=== PATIENT | female | born 1970 | race African-American/Black ===

== ENCOUNTER → 2019-11-16 | Outpatient (CLI) | payer OTHER ==
[~2019-11-16] MED LIST: FLEXERIL PO; HYDROCODON-ACE1 EAC8 PO; ONZETRA XSAIL11 MG NARES; PROZAC20 M1 PO; SPIRONOLACTONE100 M3 PO; TOPIRAMATE 100100 MG PO; VITAMIN D310 MC4 PO; WELLBUTRIN SR100 MG PO
[2019-11-17 02:06] LABS: CA 125 4.9 U/mL (0.0-38.1)
[2019-11-17 15:07] LABS: CEA 0.8 ng/mL (0.0-4.7)
== END ==
LOC: LABMALL 12:58
PROVIDERS: ATTEND Obstetrics & Gynecology
DX: Z80.41 Family history of malignant neoplasm of ovary (principal); N83.209 Unspecified ovarian cyst, unspecified side

== ENCOUNTER → 2020-02-22 | Outpatient (CLI) | payer OTHER ==
[~2020-02-22] MED LIST changes: +B12INJ IM; +ELIQUIS2.5 MG PO
== END ==
LOC: LAB 07:36
PROVIDERS: ATTEND Obstetrics & Gynecology
DX: Z01.812 Encounter for preprocedural laboratory examination (principal); Z20.822 Contact with and (suspected) exposure to COVID-19

== ENCOUNTER 2020-02-26 06:34 | Day surgery (SDC) | payer OTHER ==
[~2020-02-26] VITALS: Ht 167.6 cm; Wt 78.0 kg
[2020-02-26 06:56] LABS: HEMATOCRIT 41.2 % (37.0-47.0); HEMOGLOBIN 13.6 gm/dL (12.0-15.0)
[2020-02-26 07:05] LABS: CREATININE 1.1 mg/dL (0.6-1.0); POTASSIUM 4.3 mmol/L (3.5-5.1)
[2020-02-26 07:17] VITALS: BP 92/61
[2020-02-26] MEDS ORDERED: IBU600 MG PO (09:28)
[2020-02-26] MEDS ORDERED: HYDROCODON-ACE1 EAC7 PO (09:28)
[2020-02-26] MEDS ORDERED: LOVENOX40 MG/0.4 SUBQ (09:28)
[2020-02-26 09:41] VITALS: BP 92/61
--- NOTE | 2020-03-02 12:44 | O ---
[facility] [place] [address] OPERATIVE REPORT Name: NGUYỄN POE Room #: DEP [facility]ENTERIsauro.[facility] [id number] Admission: 02/26/20 Attend Phys: Diana Torres DO Discharge: 02/26/20 Date of : 72 Report #: [id number] THIS REPORT FOR: cc: Elvi Castro MD, Veronica A. MD Farris,Diana Pérez DO ~ DATE OF SERVICE: 02/26/2020 PREOPERATIVE DIAGNOSES: 1. Ovarian pelvic mass. 2. Pelvic pain. 3. Family history of breast cancer. 4. Family history of ovarian cancer. POSTOPERATIVE DIAGNOSES: 1. Ovarian pelvic mass. 2. Pelvic pain. 3. Family history of breast cancer. 4. Family history of ovarian cancer. 5. Extensive pelvic adhesions incorporating bowel. OPERATION PERFORMED: Diagnostic laparoscopy. SURGEON: Dr. Diana Torres. ANESTHESIA: General. ESTIMATED BLOOD LOSS: Less than 5 mL. OPERATIVE FINDINGS: Dense adhesions involving the bowel and omentum to the anterior abdominal wall of the pelvis as well as the left pelvic sidewall appendix adhesed to the right pelvic sidewall, ovaries minimally visualized. One ovary noted to be adhered to the anterior abdominal wall and the left ovary unable to be visualized due to the dense adhesions. DESCRIPTION OF PROCEDURE: The patient was taken to the operating room where general anesthesia was administered and found to be adequate. She was then prepped and draped in a normal sterile fashion in dorsal supine position. A Angelo catheter was placed in the patient's bladder. The bladder was drained of urine. This was done prior to the position being prepped and draped in the supine position. A 5 mm infraumbilical incision was made with a scalpel. A 5 mm trocar was passed through this incision under direct visualization of the laparoscope. No incisional or no insertional trauma was identified. Pneumoperitoneum was allowed to accumulate using carbon dioxide gas once an adequate pneumoperitoneum was infused. An incision was made in the patient's [address] [address] OPERATIVE REPORT Name: NGUYỄN POE Room #: DEP [facility] M.R.#: [id number] Admission: 02/26/20 Attend Phys: Diana Torres DO Discharge: 02/26/20 Date of : 72 Report #: [id number] right lower quadrant with a scalpel. A 5 mm trocar was passed through this incision under direct visualization of the laparoscope. Again, no insertional trauma was identified. A survey of the patient's abdomen revealed the above findings with dense adhesions of the bowel as well as the omentum to the anterior abdominal wall, the left pelvic sidewall; the appendix adhered to the right pelvic sidewall; one ovary, which is assumed to be the right ovary, but cannot clarify distinctly due to the adhesions adhered to the anterior abdominal wall and no infundibulopelvic ligament identifiable. The left ovary or pelvic mass unable to be identified due to the dense adhesions of the pelvis. No posterior cul-de-sac was able to be distinguished due to pelvic adhesions. It was at this time decided that the bilateral salpingo-oophorectomy that was planned would be aborted and further assessment on the patient would be performed as an outpatient in conjunction with General Surgery, so the patient could possibly be returned to the operating room for the bilateral salpingo-oophorectomy with general surgeon assist. All instruments were then removed from the patient's abdomen. The trocars were removed as well. The pneumoperitoneum was allowed to escape. The incisions were then reapproximated using 4-0 Monocryl. The Angelo was removed from the patient's bladder. The patient tolerated the procedure well. Sponge, lap and needle counts were reported as correct. The patient was taken to the recovery room in stable condition. <ELECTRONICALLY SIGNED> By: Diana Torres DO 03/02/20 1244 1306 1333 Diana Torres DO /nt
== END 2020-02-26 11:15 | disposition home or self-care (01) ==
LOC: OR 06:34 → TBA 06:35 → OR 07:36
PROVIDERS: ATTEND Obstetrics & Gynecology
DX: R10.2 Pelvic and perineal pain (principal); N83.202 Unspecified ovarian cyst, left side; N73.6 Female pelvic peritoneal adhesions (postinfective); F32.9 Major depressive disorder, single episode, unspecified; G43.909 Migraine, unspecified, not intractable, without status migrainosus; Z98.890 Other specified postprocedural states; Z90.710 Acquired absence of both cervix and uterus; Z80.3 Family history of malignant neoplasm of breast; Z80.41 Family history of malignant neoplasm of ovary; Z90.711 Acquired absence of uterus with remaining cervical stump; Z96.611 Presence of right artificial shoulder joint; Z98.84 Bariatric surgery status; Z88.8 Allergy status to other drugs, medicaments and biological substances
CPT/HCPCS: 50010; 50101; 50249; 50386; 50400; 50455; 50555; 50558; 50962; 51975; 53307; 53310; 54118; 56462; 56526; 62110; 62900; 70005

== ENCOUNTER → 2020-04-18 | Outpatient (CLI) | payer OTHER ==
[~2020-04-18] MED LIST changes: +HYDROCODON-ACE1 EAC7 PO; +IBU600 MG PO; +LOVENOX40 MG/0.4 SUBQ; +TYLENOL EXTRA500 MG PO
== END ==
LOC: LAB 07:45
PROVIDERS: ATTEND Surgery
DX: Z01.812 Encounter for preprocedural laboratory examination (principal); Z20.822 Contact with and (suspected) exposure to COVID-19

== ENCOUNTER 2020-04-22 06:06 | Inpatient (IN) | payer OTHER ==
[2020-04-22] VITALS (9 sets, daily range): BP systolic 100–118; BP diastolic 66–81
[~2020-04-22] VITALS: Ht 165.1 cm; Wt 78.5 kg
[2020-04-22 07:10] LABS: HEMATOCRIT 38.8 % (37.0-47.0); HEMOGLOBIN 12.8 gm/dL (12.0-15.0)
[2020-04-22 07:17] LABS: CALCIUM 8.7 mg/dL (8.5-10.1)
[2020-04-22] MEDS ORDERED: PROMETHAZINE12.5 M1 PO (14:12)
--- NOTE | 2020-04-22 14:16 | NUR ---
ASSESSMENT: CM REVIEWED CHART AND SPOKE WITH PATIENT/ PTS . PT IS S/P LAPAROSCOPT W/LYSIS OF ADHESIONS. PT REPORTS THAT SHE LIVES IN A TOWNHOUSE WITH HER . PT HAS ONLY A COUPLE STEPS TO ENTER THE HOME AND A FULL FLIGHT WITH HANDRAIL TO HER BEDROOM. PT IS NORMALLY FULLY INDEPENDENT WITH ADLS AND AMBULATION. PT HAS NO HX OF HH OR SNF. PLANS TO RETURN HOME WHEN ABLE.
--- NOTE | 2020-04-22 15:48 | NUR ---
PT CARE ASSUMED FROM OR AT 1215. BP LOW AT 89/36 R:10. FLUIDS INITTIATED. HOB ELEVATED. PUT ON 4L. BP STABILIZED AT 113/68 AND R:14. PT REPOSITIONED FOR PAIN MANAGMENT, HEATING BLANKET ADDED. PO MEDICATION GIVEN FOR PAIN AND MONITORING VITALS. PT TOLERATING CLEAR LIQUIDS WELL WITH NO N/V PRESENT. SCOLPAMINE PATCH R. EAR. LAZARO CATHETER IN PLACE WITH EMIGDIO RED OUTPUT. SCD'S IN PLACE. MIDLINE INCISSION DRESSING DRY AND INTACT. PT ON BEDREST. ADMISSION COMPLEETED. FALL PROTOCOL IN PLACE. CALL LIGHT IN REACH. FAMILY UPDATED.
--- NOTE | 2020-04-22 18:45 | NUR ---
ASSUMED CARE OF PT AT 1600. REPOSTIONED FREQUENTLY PER PT REQUEST. DRINKING WATER ONLY NOT WANTING ANYTHING ELSE. BP STABLE 120'S/70'S. IV MORPHINE 2MG GIVEN FOR C/O PAIN AFTER BP STABILIZED W/ GOOD RELIEF. UO 20MLS OVER LAST 2 HRS. REPORT TO NOC RN WHO WILL NOTIFY PHYSICIAN.
[2020-04-23 00:22] VITALS: BP 97/64
[2020-04-23 04:02] VITALS: BP 101/68
[2020-04-23 05:35] LABS: HEMATOCRIT 30.8 % (37.0-47.0); MCH 25.9 pg (26.0-34.0); MCHC 33.2 g/dL (28.0-37.0); MCV 78.2 fL (80.0-100.0); RBC 3.94 mil/uL (4.20-5.00); RDW 13.5 % (10.5-14.5); WBC 5.5 thou/uL (4.0-11.0)
[2020-04-23 05:37] LABS: HEMOGLOBIN 10.2 gm/dL (12.0-15.0)
[2020-04-23 05:46] LABS: ALBUMIN 2.5 g/dL (3.4-5.0); CREATININE 0.9 mg/dL (0.6-1.0); POTASSIUM 3.8 mmol/L (3.5-5.1); TOTAL BILIRUBIN 0.5 mg/dL (0.2-1.0); TOTAL PROTEIN 5.5 g/dL (6.4-8.2)
--- NOTE | 2020-04-23 07:44 | NUR ---
UPON SHIFT REPORT, INFORMED THAT SINCE TRANSFERRING TO AROUND 1600 PT WITH 20CC OUTPUT OF URINE IN CATHETER. PT AOX4. PT REPORTS MILD TO SEVERE ABDOMINAL PAIN. ABDOMEN NOTED TO BE SOFT AND DISTENDED, DRESSING INTACT-LARGE AMOUNT OF DRAINAGE VISIBLE NOT EXTENDING PAST DRESSING BORDERS. SHORTLY AFTER REPORT, PT NOTIFIED STAFF REPORTING URGENT AND PAINFUL SENSATION TO URINATE WHILE CATHETER IN PLACE. DR. HERNANDEZ NOTIFIED, RECEIVED ORDERS TO ADMINISTER ONETIME 500ML BOLUS, BLADDER SCAN, IF BLADDER WITH URINE START BLADDER IRRIGATION WITH STERILE NS. BLADDER SCANNED WITH GREATER THAN 385ML, BLADDER IRRIGATED. PT REPORTS RELIEF OF PRESSURE PAIN IN ABDOMEN WHEN CATHETER FLUSHED WITH RETURN OF URINE. PT CONTINUES TO INTERMITTENTLY REPORT ABDOMINAL PRESSURE, RELIEVED WITH IRRIGATION. PT RECEIVING PRN PO OXYCODONE Q4-6HR WITH PRN IV MORPHINE Q3HR AVAILABLE. USE OF PRN IV MORPHINE DISCOURAGED PT BLOOD PRESSURE NORMALLY ON LOWER/SOFTER SIDE AT BASELINE. PRN PO OXYCODONE NOTED TO BE EFFECTIVE. PT TOLERATING PO INTAKE OF FLUIDS AND REGULAR DIET WITHOUT ISSUE. PT WITHOUT NAUSEA OR EMESIS. PT RESTING IN BED THROUGHOUT SHIFT, FREQUENT REPOSITIONING ENCOURAGED, PT NOTED TO SHIFT INDEPENDENTLY WHILE IN BED, REPOSITIONING ASSISTANCE PROVIDED TO DECREASE LEVEL OF PAIN. PT REPORTS TINGLING IN RLE/FOOT. SENSATION OTHERWISE INTACT, CAPILLARY REFILL LESS THAN 3SEC IN ALL EXTREMITIES. PT ENCOURAGED TO NOTIFY STAFF FOR ALL NEEDS, CALL LIGHT WITHIN REACH, BED ALARM ON, BED LOCKED IN LOWEST POSITION, FREQUENT MONITORING WILL CONTINUE.
[2020-04-23 16:25] VITALS: BP 108/74
--- NOTE | 2020-04-23 18:49 | NUR ---
ASSUMED CARE OF PATIENT AT SHIFT CHANGED. ASSESSMENT CHARTED. MEDICATIONS ADMINISTERED PER EMAR. VSS. PATIENT IS A&OX4 AND MAKES NEEDS KNOWN. C/O PAIN PARTIALLY RELIEVED BY PRN PAIN MEDICATION. PATIENT ENCOURAGED TO REPOSITION OFTEN AND PREFERS L SIDE. ABDOMINAL INCISION REINFORCED W ABDOMINAL ADHESIVE BANDAGE AND C/D/I. LAZARO CATHETER INTACT AND IRRIGATED [id number]. PROGRESS NOTED W LESS AIR AND BLOODTINGED URINE NOTED SHIFT PROGRESSED. PASSING FLATUS AT TIMES AND EXPRESSED RELIEF OF SHOULDER PAIN. FALL PRECAUTIONS IN PLACE. SPOUSE AT BEDSIDE. PATIENT VOICING NO FURTHER NEEDS. WILL CONTINUE TO MONITOR AND ENDORSE TO NOC RN
[2020-04-23 20:17] VITALS: BP 103/62
--- NOTE | 2020-04-24 06:06 | NUR ---
RECIEVED CARE OF THIS PATIENT AT 1900. PATIENT ALERT AND ORIENTED X4. HAS DRESSING ON ABD D/I. HAS LAZARO DRAINING REDDISH URINE WITH SOME SMALL BLOOD CLOTS. IRRIGATED EVEDRY 4 HR. HAS HEATING PAD ON ABD. C/O PAIN, MED GIVEN. SLEPT OFF AND ON DURING NIGHT.
[2020-04-24 09:29] VITALS: BP 114/76
[2020-04-24 17:43] VITALS: BP 113/77
--- NOTE | 2020-04-24 18:38 | NUR ---
ASSUMED CARE OF PATIENT AT SHIFT CHANGE. ASSESSMENT CHARTED. MEDICATIONS ADMINISTERED PER EMAR. VSS. PATIENT IS A&OX4 AND ABLE TO MAKE NEEDS KNOWN. PATIENT WAS SEEN BY DOCTOR MARY AND ABLE TO TAKE SHOWER AND AMBULATE. PATIENT SHOWERED WITH SET UP AND TOLERATED WELL. UROLOGIST SAW PATIENT AND ORDERED TO CHANGE OUT 16FR. LAZARO WITH A 20FR. LAZARO. LAZARO WAS INSERTED AND CONTINUED TO DRAIN BLOODY URINE. IRRIGATION PERFORMED Q2 HOURS AND CONTINUED TO LET OUT CLOTS. PATIENT TO AMBULATE QID PER MD. C/O PAIN AND GAS DISCOMFORT. MEDICATED PER EMAR. PATIENT PLAN IS TO D/C BACK HOME W LAZARO AND F/U WITH UROLOGY FOR A STENT PLACEMENT. PATIENT VOICES NO FUTHER NEEDS. WILL ENDORSE TO BENNIE WETZEL
--- NOTE | 2020-04-24 19:47 | NUR ---
EDUCATION ON BLADDER IRRIGATION INTRODUCED TO HER AND SPOUSE. PATIENT COMMUNICATED SOME UNDERSTANDING AND WOULD LIKE FUTURE INTRUCTION BEFORE DISCHARGE
[2020-04-24 20:20] VITALS: BP 112/77
--- NOTE | 2020-04-25 05:27 | NUR ---
PT LYING IN BED. PERCOCET PROVIDING PAIN RELIEF. DENIES NAUSEA. IRRIGATION OF LAZARO PER ORDERDS. RESTING COMFORTABLY. NO NEEDS VOICED. CALL LIGHT WITHIN REACH. FREQUENT OBSERVATION.
[2020-04-25 08:25] VITALS: BP 98/65
[2020-04-25 09:07] LABS: HEMATOCRIT 30.5 % (37.0-47.0); MCH 25.7 pg (26.0-34.0); MCHC 32.8 g/dL (28.0-37.0); MCV 78.4 fL (80.0-100.0); RBC 3.89 mil/uL (4.20-5.00); RDW 14.1 % (10.5-14.5); WBC 4.8 thou/uL (4.0-11.0)
--- NOTE | 2020-04-25 14:14 | NUR ---
Nutrition: pt admitted with gross hematuria, Left ureteral injury S/P ureteral reimplant, giuseppe ESPITIA, BSO. Received consult stating "no reason". Chart reviewed. Pt eating 10-40% of meals past 2 days since surgery on regular diet. Decreased po related to pain. Stable weights. BMI 28.8-overweight category. Pt aware of option to order meals and refuses supplements. Will try to eat more of meals. Low nutrition risk.
--- NOTE | 2020-04-25 15:44 | NUR ---
PT HAVING CBI. LAZARO TO BE IN PLACE FOR 10 DAYS. CM TO FOLLOW INDICATED WITH DC PLANNING.
[2020-04-25 16:00] VITALS: BP 113/76
--- NOTE | 2020-04-25 18:31 | NUR ---
PT ASSESSED AT START OF SHIFT. PT HAVING URINARY CLOTS IN LAZARO SO UROLOGY NOTIFIED AND ORDER FOR CBI. RICA SANDRA PLACED #20 3-WAY W/O DIFFICULTY AND PT ON CBI NS. NEEDED TO HAVE MANUAL IRRIGATION ONE TIME THIS AFTERNOON AND SINCE URINE HAS BEEN CLEAR PINK AT MODERATE RATE. PT HAS BEEN UP IN THE FINISHING WIRE SAWYER TWICE FOR SEVERAL HOURS AND AMBULATED THE HALLS THIS AM. WILL WALK AGAIN THIS EVENING. TAKING TYLENOL FOR PAIN DURING THE DAY PER PT REQUEST. PASSING FLATUS BUT NO BM YET. ABD NILSON WELL APPROXIMATED-REBECCA TO AREAS WHERE SKIN TOUCHING.
[2020-04-25 20:09] VITALS: BP 113/71
--- NOTE | 2020-04-26 02:53 | NUR ---
PT CARE ASSUMED AT 1900 WITH PT IN CHAIR WATCHING TV.PT IS A/O X4.PT IS UP WITH STANDBY ASSIST.PT IS ON CBI AND NS FLOWING AND DRAINING GOOD.PT C/O PAIN WITH PAIN MANAGED WITH TYLENOL AND OXYCODONE PRN.INCISION SITE OPEN TO AIR WITH STABLES AND GUAZE IN AREAS TOUCHING.PT HAS NO BM BUT PASSING FLATUS.WILL CONTINUE TO MONITOR
--- NOTE | 2020-04-26 06:40 | O ---
[facility] [place] [address] OPERATIVE REPORT Name: NGUYỄN POE Room #: 459-P ADM IN M.R.#: [id number] Admission: 04/22/20 Attend Phys: Kasi Villarreal MD Discharge: Date of : 72 Report #: [id number] THIS REPORT FOR: cc: Elvi Castro MD, Veronica A. MD Farris, Kari C. DO ~ DATE OF SERVICE: 04/22/2020 OPERATION PERFORMED: Laparoscopic lysis of adhesions per General Surgery converted to laparotomy with bilateral oophorectomy per Gynecology and left ureteroneocystectomy per Urology. SURGEON: Kasi Villarreal MD CO-SURGEON: Diana Torres DO INTRAOPERATIVE CONSULTATION: Guillermo Francois MD, Urology. Please see Dr. Villarreal's dictation for start of case with laparoscopy and lysis of adhesions ____ Dr. Villarreal ____ lysis of adhesions was performed ____ adequately visualized bilateral ovaries. I scrubbed in and entered the case. At that point in time, Dr. Villarreal had noted the left ureter had been injured during the lysis of adhesions. DESCRIPTION OF PROCEDURE: Further blunt dissection of the left ovary as well as the right ovary was performed as an intraoperative consultation for Urology was requested, at this time, then due to the nature of the ureteral injury, the case was converted to a laparotomy. Please see Dr. Villarreal's note on conversion to laparotomy. Once the abdomen had been opened and a retractor placed, the left ovary and cyst were visualized. They were grasped. It was grasped with a [place] clamp. Blunt dissection was further performed and using the LigaSure device, the infundibulopelvic ligament was transected. This ovary was handed off for pathology. The right ovary was then visualized, grasped with a Nano clamp. A small amount of blunt dissection was performed and using the LigaSure device, it was transected from the pelvic wall and sent for pathology. Dr. Francois then began his portion of the case. Please see his dictation. Once Dr. Francois had completed his portion of the case, Dr. Villarreal and I then performed the abdominal closure. Please see his dictation for closure. <ELECTRONICALLY SIGNED> By: Diana Torres DO 04/26/20 0640 2130 2201 Diana Torres DO /nt
[2020-04-26 08:00] VITALS: BP 120/84
--- NOTE | 2020-04-26 11:11 | O ---
[facility] [place] [address] OPERATIVE REPORT Name: NGUYỄN POE Room #: 459-P ADM IN M.R.#: [id number] Admission: 04/22/20 Attend Phys: Kasi Villarreal MD Discharge: Date of : 72 Report #: [id number] THIS REPORT FOR: cc: Elvi Castro MD, Veronica A. MD Joseph, Sigi P. MD ~ DATE OF SERVICE: 04/22/2020 PREOPERATIVE DIAGNOSES: Family history of breast cancer, ovarian mass, lower abdominal adhesions, and history of gastric sleeve. POSTOPERATIVE DIAGNOSES: Family history of breast cancer, ovarian mass, lower abdominal adhesions, and history of gastric sleeve. OPERATIVE PROCEDURE DONE: Laparoscopic lysis of adhesions for more than [address] Kasi Villarreal, bilateral oophorectomy by Dr. Diana oTrres and left ureteroneocystostomy by Dr. Francois. OPERATING SURGEON: Dr. Kasi Villarreal for lysis of adhesions. INDICATIONS FOR THE PROCEDURE: The patient is a 49-year-old female who has a family history of breast cancer, was noted to have ovarian mass. The patient was advised on salpingo-oophorectomy. The patient underwent attempted lysis of adhesions and oophorectomy, few weeks ago; however, due to the dense adhesions, the procedure was abandoned and therefore, General Surgery was consulted for lysis of adhesions. The patient was explained about the procedure. DESCRIPTION OF PROCEDURE: Procedure after explaining to the patient in detail and informed consent was obtained, the patient was identified in the preoperative holding area. The patient was transferred to the operating room and was placed in supine position. Sequential compressive devices were placed for DVT prophylaxis. Preoperative antibiotics were given. After induction of anesthesia, the abdomen was prepped and draped in a sterile fashion. Through a right upper quadrant, a 1 cm incision and using Optiview technique, peritoneal cavity was entered and pneumoperitoneum was created. Thereafter, under direct vision, another 5 mm trocar was placed in the left flank and another 5 mm trocar was placed through a supraumbilical incision. On initial inspection, the patient was noted to have moderate adhesions in the pelvis and some dense lesion in the left side. I started to do adhesiolysis using sharp and blunt dissection and continued to take down the right pelvic adhesions . Most of these adhesions were taken down without difficulty. On the left side, I continued to take down the adhesions. There appeared to be dense adhesions in the lateral pelvic wall and bowel loops were were stuck on the ovarian mass as well. The ovary was attached onto the lateral [address] [address] OPERATIVE REPORT Name: NGUYỄN POE Room #: 459-P [facility] IN M.R.#: [id number] Admission: 04/22/20 Attend Phys: Kasi Villarreal MD Discharge: Date of : 72 Report #: [id number] pelvic wall along with the ovarian mass. I continue to mobilize this area using a sharp and blunt dissection. There were two areas that appeared to be severely scarred and tethered, at which there was no definite plane noted. I used the EnSeal to divide these 2 areas. Once I completed this part on further inspection, I noticed that the ureter was partly injured. At this point, intraoperative Urology consultation was obtained. Dr. Francois came in and performed a left ureteral neocystostomy. Separate dictation on this will be done by Dr. Francois. Prior to this, we had made a midline incision. We continued adhesiolysis. The right and left salpingo-oophorectomy was performed by Dr. Ramirez prior to the Urology intervention. All the adhesions were taken down. Once a ureteral injury was repaired, thorough saline irrigation was given. Absolute hemostasis was ensured. The abdomen was then desufflated. The midline incision was closed with #1 PDS for the facial. Skin was closed with kemi. The patient was stable at the end of the procedure. The patient was awoken from anesthesia and was transferred to the recovery room in stable condition. ESTIMATED BLOOD LOSS: 50 mL. CONDITION OF THE PATIENT: Stable. FLUIDS GIVEN: Per anesthesia notes. SPECIMEN SENT: None. COMPLICATIONS: None. ANESTHESIA: General anesthesia. <ELECTRONICALLY SIGNED> By: Kasi Villarreal MD 04/26/20 1111 1047 1106 Kasi Villarreal MD /nt
--- NOTE | 2020-04-26 12:07 | PATH ---
[facility] [place] [address] PATHOLOGY RPT PROCEDURE Name: NGUYỄN POE Room #: 459-P ADM IN M.R.#: [id number] Admission: 04/22/20 Date of : 72 Discharge: Report #: [id number] Path Case #: [id number] [facility] Accession Number: [id number] . 01 Material submitted: . PART A: ovary - RIGHT OVARY AND FALLOPIAN TUBE. Modifiers: right PART B: ovary - LEFT OVARIAN MASS. Modifiers: left . 01 Clinical history: . LAPAROSCOPY W LYSIS OF ADHESIONS/PERITONEA LAPAROSCOPY WITH LYSIS OF ADHESIONS LAPAROSCOPIC CONVERT TO OPEN LAPAROSCOPIC SALPINGO-OOPHORECTOMY URETHROPEXY PERITONEAL ADHESIONS, OVARIAN CYST LEFT SIDE, FAMILY HISTORY OF OVARIAN CANCER . 02 Diagnosis: A. Ovary and fallopian tube, right, right salpingoophorectomy: - Ovarian parenchyma showing marked endosalpingiosis along with congestion. - Follicular cysts as well as physiologic changes over a background ovarian parenchyma. - Surface showing fibrous adhesions along with marked congestion. - Fallopian tube with no diagnostic abnormalities. . B. Ovary, left ovarian mass, oophorectomy: - Multiloculated serous cystadenoma, measuring 5.7 cm in greatest dimension. - Negative for borderline proliferation or malignancy. - Background ovarian parenchyma showing congestion along with endosalpingiosis. - Fallopian tube with no significant diagnostic abnormalities. (IUV:porter; 04/25/2020) QMS 04/25/2020 1640 Local . 02 Electronically signed: . Gilma Sena MD, Pathologist NPI- [id number] . 01 Gross description: . A. Received in formalin labeled "Nguyễn Poe, right ovary and fallopian tube" is a delgado-white cerebriform ovary measuring 2.1 x 1.3 x 1.3 cm with an attached portion of pink-delgado soft tissue measuring 1.8 x 0.8 x 0.6 cm. The specimen weighs entirely 3 g. A fallopian tube is not definitively identified. The specimen is serially sectioned to reveal multiple delgado-yellow corpora lutea and delgado-white corpora albicantia on cut [facility] [address] [place] [address] PATHOLOGY RPT PROCEDURE Name: NGUYỄN POE Room #: 459-P [facility] IN M.R.#: [id number] Admission: 04/22/20 Date of : 72 Discharge: Report #: [id number] Path Case #: [id number] surfaces, ranging from 0.2-0.6 cm in greatest dimension. The specimen is submitted entirely in cassettes A1-A3. . B. Received in formalin labeled "Nguyễn Poe, left ovarian mass" is a delgado-brown cystic structure weighing 49 g and measuring 5.7 x 5.5 x 4.7 cm. The external surface is smooth and the specimen is sectioned to reveal multiple simple cysts ranging from 0.6-4.5 cm in greatest dimension. The cysts have smooth linings without papillary excrescences identified. The cysts contain clear watery fluid. A portion of ovarian parenchyma is present, measuring 3.3 cm in greatest dimension. A portion of fimbriated fallopian tube tissue is identified, measuring 3.0 x 1.6 x 0.5 cm, which is adherent to the ovarian parenchyma. Software Programmer sections of the specimen is submitted as follows: B1-B3 surgical sales representative sections of cysts B4-B5 surgical sales representative sections of ovarian parenchyma and fallopian tube ([facility]; 04/24/2020) [facility] 04/24/2020 [facility] Local . 02 Pathologist provided ICD-10: D27.1, N94.89, N83.01 . 02 CPT . 151894, 500492 Specimen Comment: A courtesy copy of this report has been sent to [phone] Specimen Comment: [phone], , Specimen Comment: Report sent to ,DR HERNANDEZ,DR BENTLEY / DR WINSTON Performed at: 01 [facility] [address] [place] [address] [address], [place] [id number] MD Tobi Davenport MD Phone: [phone] Performed at: [address] [id number] MD Gilma Sena MD Phone: [phone]
--- NOTE | 2020-04-26 12:34 | NUR ---
This day Urology indicated that CBI was clamped. They stated that if urine remains pink off CBI, ok for discharge later today. Otherwise, restart CBI, hand irrigate as needed, and monitor again overnight. CM following regarding dc planning.
[2020-04-26 15:40] VITALS: BP 122/82
--- NOTE | 2020-04-26 18:45 | NUR ---
ASSUMEED PATIENT CARE AT 0700. A/O X4. ASSSUMED CBI AT 1600 AFTER NOTED URINE COLOR GETTING DARKER AND HAS A FEW BLOOD CLOTS. PATIENT AMBULATED IN ROOM. VSS. NOT TOWARDS POC GOALS.
[2020-04-26 19:44] VITALS: BP 132/82
--- NOTE | 2020-04-27 02:59 | NUR ---
PT CARE ASSUMED WITH PT IN BED WATCHING TV AT 1900.PT IS A/O X4.PT IS UP WITH STANDBY ASSISTANCE TO THE BATHROOM OR BSC.PT LBM ON THE 04/20 AND PASSING FLATUS.PT IS ON CBI DRAINING OK.PT INCISION SITE D/C/I OPENED TO AIR WITH NILSON.PT C/O PAIN MANAGED WITH NORCO.WILL CONTINUE TO MONITOR PER POC
[2020-04-27 08:00] VITALS: BP 118/76
--- NOTE | 2020-04-27 15:42 | NUR ---
CARE TEAM INDICATED THAT PT IS MEDICALLY STABLE TO DC HOME THIS DAY. NO OTHER CM INTERVENTION INDICATED CASE CLOSED.
[2020-04-27 16:17] VITALS: BP 118/76
--- NOTE | 2020-04-27 16:40 | NUR ---
Assumed pt care at 7am.Assessment completed.vss.Pt very anxious about having bm prior to dc home today.Dr Tate notified but it taks over 8 hours to return call.Dariana masters metallurgical technician here from [facility].Dc order received fro Dr Tate. Dc summary completed and reviewed with pt and .Pt will be returning for cystogram next saturday at 10am.Pt took shower this morning. New drsg applied over midline staple.Miralax given with result.Saline lockd dc'd.At 1655,pt dc home in with accompanied by unit sec.
== END 2020-04-27 17:33 | disposition home or self-care (01) | DRG 743 ==
LOC: OR 06:06 → TBA 06:11 → OR 07:45 → 4S 12:44 → OR 15:01 → 4W 17:51 → OR 17:52 → 4W 17:52
PROVIDERS: Physician Assistant; ADMIT Obstetrics & Gynecology; ATTEND Surgery
PROC: 0T770DZ Dilation of Left Ureter with Intraluminal Device, Open Approach (ICD-10-PCS; principal; 2020-04-22)
PROC: 0TB70ZZ Excision of Left Ureter, Open Approach (ICD-10-PCS; principal; 2020-04-22)
PROC: 0UB24ZZ Excision of Bilateral Ovaries, Percutaneous Endoscopic Approach (ICD-10-PCS; principal; 2020-04-22)
PROC: 0UN14ZZ Release Left Ovary, Percutaneous Endoscopic Approach (ICD-10-PCS; principal; 2020-04-22)
PROC: 0TR Urinary System, Replacement (ICD-10-PCS; principal; 2020-04-22)
PROC: 0T174ZB Bypass Left Ureter to Bladder, Percutaneous Endoscopic Approach (ICD-10-PCS; principal; 2020-04-22)
DX: N73.6 Female pelvic peritoneal adhesions (postinfective) (principal); R19.00 Intra-abdominal and pelvic swelling, mass and lump, unspecified site; R31.0 Gross hematuria; N99.81 Other intraoperative complications of genitourinary system; Y83.6 Removal of other organ (partial) (total) as the cause of abnormal reaction of the patient, or of later complication, without mention of misadventure at the time of the procedure; Y82.8 Other medical devices associated with adverse incidents; Y92.234 Operating room of hospital as the place of occurrence of the external cause; Z53.31 Laparoscopic surgical procedure converted to open procedure; Z80.3 Family history of malignant neoplasm of breast
CPT/HCPCS: 10047; 50010; 50093; 50101; 50386; 50400; 50455; 50555; 51412; 51489; 51620; 51776; 52265; 52266; 54118; 56462; 56525; 56526; 56668; 56760; 58574; 62110; 62900; 70005

== ENCOUNTER 2020-04-28 20:02 | Inpatient (IN) | payer OTHER ==
[~2020-04-28] VITALS: Ht 165.1 cm; Wt 77.7 kg
[~2020-04-28 20:02] MED LIST changes: +PROMETHAZINE12.5 M1 PO
[2020-04-28 20:15] VITALS: BP 102/72
[2020-04-28 21:32] LABS: URINE BILIRUBIN 2+ (Negative); URINE BLOOD 3+ (Negative); URINE CLARITY SL CLOUDY; URINE COLOR ORANGE; URINE GLUCOSE-RANDOM* TRACE (Negative); URINE KETONES 1+ (Negative); URINE PROTEIN (DIPSTICK) 3+ (Negative); URINE SPECIFIC GRAVITY 1.025 (1.005-1.035); URINE UROBILINOGEN >= 8.0 E.U./dl (0.2-1.0)
[2020-04-28 21:43] LABS: ABSOLUTE NEUTROPHILS 5.9 thou/uL (1.4-8.2); BASOPHILS 0.2 % (0.0-2.0); EOSINOPHILS 4.7 % (0.0-3.0); HEMATOCRIT 34.1 % (37.0-47.0); HEMOGLOBIN 11.3 gm/dL (12.0-15.0); LYMPHOCYTES 7.7 % (24.0-44.0); MCH 25.6 pg (26.0-34.0); MCHC 33.2 g/dL (28.0-37.0); MCV 77.3 fL (80.0-100.0); MONOCYTES 0.4 % (1.0-8.0); PLATELET COUNT 373 thou/uL (150-400); RBC 4.42 mil/uL (4.20-5.00); RDW 13.6 % (10.5-14.5); WBC 6.8 thou/uL (4.0-11.0)
[2020-04-28 21:46] LABS: CALCIUM 8.8 mg/dL (8.5-10.1); CREATININE 1.2 mg/dL (0.6-1.0); POTASSIUM 3.9 mmol/L (3.5-5.1)
[2020-04-28 21:47] LABS: URINE LEUKOCYTES-REFLEX 2+ (Negative); URINE NITRITE-REFLEX POSITIVE (Negative)
[2020-04-28 21:52] LABS: ALBUMIN 3.1 g/dL (3.4-5.0); DIRECT BILIRUBIN 0.1 mg/dL (<0.1-0.2); TOTAL PROTEIN 7.2 g/dL (6.4-8.2)
[2020-04-28 21:53] LABS: ICTOTEST (BILI CONFIRMATORY) Positive (Negative)
[2020-04-28 21:55] LABS: SQUAMOUS 0-3 Few /LPF (0-3)
[2020-04-28 21:56] LABS: MUCUS 0-3 Light strn/LPF (None Seen); URINE WBC-REFLEX >25 Many /HPF (0-5)
[2020-04-28 21:59] LABS: CRYSTALS None Seen /LPF (None Seen); URINE RBC >20 Many /HPF (0-2)
[2020-04-28 22:00] LABS: FINE GRANULAR CASTS 0-3 Few /LPF (None Seen)
[2020-04-29] VITALS (7 sets, daily range): BP systolic 98–132; BP diastolic 56–99
--- NOTE | 2020-04-29 08:00 | NUR ---
patients cares were assumed at approx 0300 when she came up from the ed. patient was assessed and meds were given per orders. sponges with ice water to moist her mouth was given. rounding was done, the bed is in a low and locked position
--- NOTE | 2020-04-29 13:08 | EKG ---
[address] [address] ELECTROCARDIOGRAM REPORT Name: NGUYỄN POE Room #: 206-P ADM IN M.R.#: [id number] Admission: 04/29/20 Attend Phys: Nick Burden MD Discharge: Date of : 72 Report #: [id number] [facility] Test Date: 2020-04-28 Test Time: 20:42:23 Pat Name: NGUYỄN POE Department: Room: 206 P Gender: F Associate Manager: MPARK : 1970 Requested By: Nick Burden Order Number: [id number] MD: Naman Weathers Measurements Intervals Metaline Rate: 127 P: 62 HI: 139 QRS: 66 QRSD: 79 T: 4 QT: 320 QTc: 466 Interpretive Statements Sinus tachycardia Borderline T wave abnormalities Baseline wander in lead(s) II No previous ECG available for comparison Electronically Signed On 04-29-2020 13:08:29 CDT by Naman Weathers [email or web address] <ELECTRONICALLY SIGNED> By: Naman Weathers MD, [facility] 04/29/20 1308 41 41 Naman Weathers MD, FACC /EPI
--- NOTE | 2020-04-29 16:04 | NUR ---
Chart reviewed and case discussed with the care team. Pt recently here and dc'd to home with outpt f/u and pitt cath. Lives indep at home with her spouse. No cm interventions indicated at this time. Pt has ins in place and pcp for f/u care. Will follow along should dc needs arise.
--- NOTE | 2020-04-29 17:12 | NUR ---
ASSUMED CARE OF PT AT SHIFT CHANGE. ASSESSMENTS CHARTED. MEDS GIVEN PER APR. PT A&OX4, C/O PAIN TREATED WITH IV MEDS WITH PARTIAL RELIEF. BLOOD CULTURES POSITIVE FOR GRAM NEG RODS. FLUIDS AND ABX CONTINUE. FEBRILE ALL SHIFT. AT BEDSIDE, SISTER CALLS FOR UPDATES. WILL CONTINUE TO MONITOR AND FOLLOW POC.
[2020-04-30] VITALS (10 sets, daily range): BP systolic 90–133; BP diastolic 52–85
[2020-04-30 01:06] LABS: GLYCOHEMOGLOBIN (HGB A1C) 5.2 % (4.8-5.6)
--- NOTE | 2020-04-30 05:53 | NUR ---
ASSUMED CARE AT CHANGE OF SHIFT; AOX4; SBA TO TOILET; SBP 90s/DBP 50-60s; SR/ST ON THE MONITOR; C/O PAIN MANAGED WELL WITH PRN MEDICATIONS; ONE LOOSE STOOL LASTNOC AND PT REPORTED SOME STOMACH GURGLING/SIMETHICONE ADMINISTERED PER PROVIDER ORDER; FEBRILE EARLY IN THE NOC/APAP ADMIN'd LAST NOC AND THIS AM TO PREVENT FURTHER TREND UP; DENIES CHILLS; WILL CONTINUE TO MONITOR AND FOLLOW POC.
--- NOTE | 2020-04-30 18:19 | NUR ---
PT CARE ASSUMED AT 0700. ASSESSMENTS CHARTED. MEDICATIONS CHARTED. LFA IV. LAZARO, DAMAGED LT URETER. SINUS RHYTHM. POSITIVE FOR GRAM - RODS. REGULAR DIET. PT TRANSFERRED TO [address] [place] [address].
--- NOTE | 2020-04-30 19:23 | NUR ---
Received pt from 2n, nausea noted. Medications given as per emar. POC followed with no signs or distress noted. at the bed side, report given to the night nurse.
--- NOTE | 2020-05-01 06:00 | NUR ---
Pt. rested quietly at intervals during the night when checked on during frequent rounds. She c/o abdominal pain and a headache. Pain meds given (see emar) with some relief noted. Floweree to abdomen are intact. Bed alarm is on.
[2020-05-01 08:41] VITALS: BP 124/85
[2020-05-01 11:14] LABS: ABSOLUTE NEUTROPHILS 2.4 thou/uL (1.4-8.2); BASOPHILS 1.3 % (0.0-2.0); EOSINOPHILS 13.7 % (0.0-3.0); HEMATOCRIT 26.9 % (37.0-47.0); MCH 26.6 pg (26.0-34.0); MCHC 34.4 g/dL (28.0-37.0); MCV 77.4 fL (80.0-100.0); MONOCYTES 9.1 % (1.0-8.0); PLATELET COUNT 303 thou/uL (150-400); POLYS 52.9 % (36.0-66.0); RBC 3.48 mil/uL (4.20-5.00); RDW 13.7 % (10.5-14.5); WBC 4.5 thou/uL (4.0-11.0)
[2020-05-01 11:21] LABS: HEMOGLOBIN 9.2 gm/dL (12.0-15.0)
[2020-05-01 11:31] LABS: ALBUMIN 2.2 g/dL (3.4-5.0); CALCIUM 7.8 mg/dL (8.5-10.1); CREATININE 0.9 mg/dL (0.6-1.0); MAGNESIUM 1.5 mg/dL (1.8-2.4); TOTAL BILIRUBIN 0.3 mg/dL (0.2-1.0); TOTAL PROTEIN 5.5 g/dL (6.4-8.2)
[2020-05-01 11:33] LABS: POTASSIUM 2.9 mmol/L (3.5-5.1)
--- NOTE | 2020-05-01 12:02 | NUR ---
Assumed pt care at 7am.Pt in bed resting.Assessment completed.vss.Dr Torres and Lea here. Both okay pt dc home today if okay by Id.Received call from Lab about pt potassium extremely low today.Dr Mayen notified.order noted.Pt will have us pelvic and abdominal wall later today.Pt up to br with sba. Tylenol po given for back ache rated 5/10.Will continue to monitor.
[2020-05-01 16:00] VITALS: BP 117/82
[2020-05-01 20:22] VITALS: BP 124/86
--- NOTE | 2020-05-02 02:42 | NUR ---
PT CARE ASSUEMED WITH PT IN BED RELAXING.PT IS A/O X4.PT IS UP WITH X1 ASSIST .PT HAS A LAZARO IN PLACE.INCISION ON MIDLINE C/D/I .PT HAD TYLENOL FOR PAIN MANAGEMENT PRN.IV ACCESS ON LT FA .PT HAD NO INCREASE TEMPERATURE DURING SHIFT.WILL CONTINUE TO MONITOR
[2020-05-02 05:40] LABS: ABSOLUTE NEUTROPHILS 2.1 thou/uL (1.4-8.2); BASOPHILS 1.6 % (0.0-2.0); EOSINOPHILS 12.2 % (0.0-3.0); HEMATOCRIT 28.8 % (37.0-47.0); HEMOGLOBIN 9.5 gm/dL (12.0-15.0); LYMPHOCYTES 39.3 % (24.0-44.0); MCH 25.9 pg (26.0-34.0); MCHC 33.1 g/dL (28.0-37.0); MCV 78.1 fL (80.0-100.0); MONOCYTES 8.4 % (1.0-8.0); PLATELET COUNT 363 thou/uL (150-400); POLYS 38.5 % (36.0-66.0); RBC 3.68 mil/uL (4.20-5.00); RDW 14.2 % (10.5-14.5); WBC 5.4 thou/uL (4.0-11.0)
[2020-05-02 05:51] LABS: CALCIUM 8.1 mg/dL (8.5-10.1); CREATININE 0.8 mg/dL (0.6-1.0); MAGNESIUM 1.8 mg/dL (1.8-2.4); PHOSPHORUS 2.8 mg/dL (2.5-4.9)
[2020-05-02 05:52] LABS: POTASSIUM 3.9 mmol/L (3.5-5.1)
[2020-05-02 08:17] VITALS: BP 131/86
--- NOTE | 2020-05-02 15:37 | NUR ---
This RN agrees with the assessment of the PARADI TENDER.
--- NOTE | 2020-05-02 15:40 | HC ---
[facility] [place] [address] CONSULTATION Name: NGUYỄN POE Room #: 454-P ADM IN M.R.#: [id number] Admission: 04/29/20 Attend Phys: Nick Burden MD Discharge: Date of : 72 Report #: [id number] THIS REPORT FOR: cc: Elvi Castro MD, Veronica A. MD Geha,Vidal Sutherland MD ~ DATE OF SERVICE: 04/30/2020 INFECTIOUS DISEASE CONSULTATION REASON FOR CONSULTATION: I was asked to evaluate concerning complicated urinary tract infection. HISTORY OF PRESENT ILLNESS: A 49-year-old who was evaluated for pelvic mass and need for bilateral oophorectomy for family history of ovarian and breast cancer. She underwent lysis of adhesions, suffering a left ureteral injury. Open laparotomy was performed with bilateral oophorectomy completed and left ureteral reimplantation was carried out on 04/22/2020. She had a good recovery and was discharged on 04/27/2020. She had indwelling Angelo catheter and a ureteral stent in place. She presented on 04/29/2020 with acute onset of fever, chills, gross hematuria, nausea without vomiting. She was found to have Klebsiella urinary tract infection with both urine and blood growing the organism. Sensitivities are pending. She has been on Zosyn without side effect. Fever has come down. Chills have resolved, but she is still nauseated. ALLERGIES: ADHESIVE TAPE, BACITRACIN, MUPIROCIN, NEOMYCIN, POLYMYXIN B, SULFA. MEDICATIONS: As noted on her MAR, now on Zosyn. PAST MEDICAL HISTORY: Hysterectomy, breast reduction surgery, bilateral rotator cuff repair, total shoulder replacement on the right, bilateral bunionectomies, right foot bone spur removed, right knee arthroscopy, gastric sleeve surgery, right carpal tunnel release, migraine headaches, depression, lipoma resection, bilateral oophorectomy. FAMILY HISTORY: Ovarian and breast cancer. SOCIAL HISTORY: Nonsmoker, no significant alcohol intake. REVIEW OF SYSTEMS: A 14-point review of system was negative other than what has been described above. PHYSICAL EXAMINATION: VITAL SIGNS: Afebrile and hemodynamically stable. GENERAL: She is alert, cooperative, pleasant, in no acute distress. [address] [address] CONSULTATION Name: NGUYỄN POE Room #: 454-P [facility] IN M.R.#: [id number] Admission: 04/29/20 Attend Phys: Nick Burden MD Discharge: Date of : 72 Report #: [id number] SKIN: Without rash or decubitus. She had midline abdominal incision, was well approximated. No palpable adenopathy. She was obese. EYES: Without scleral icterus or conjunctivitis. MOUTH: Without mucositis. NECK: Supple. LUNGS: Clear to auscultation. HEART: Regular, without murmur, gallop or rub. ABDOMEN: Soft, tender mostly in the lower abdomen. No CVA tenderness. No appreciable masses or hepatosplenomegaly. GENITOURINARY: External genitalia with indwelling Angelo catheter. RECTAL: Not performed. NEUROLOGIC: Cranial nerves intact. Strength in upper and lower extremities was within normal limits as was sensation to fine touch. Mood without anxiety or depression. LABORATORY STUDIES: Reviewed. Urinalysis with wbc's, rbc's and bacteria. Urine culture showing Klebsiella pneumoniae. Blood cultures, Klebsiella pneumoniae, sensitivities pending. Hemoglobin 11, white count 6.8, creatinine 1.2. Liver function test normal. CT scan of the abdomen and pelvis, no intra-abdominal abscess present. Left ureteral stent in place. Small amount of gas in the collecting tubes of the left kidney. IMPRESSION: Klebsiella pneumoniae, pyelonephritis, complicated previous ureteral injury and reanastomosis with stent placed on 04/22/2020. She is status post laparotomy with bilateral nephrectomy. She has had bilateral oophorectomy with lysis of adhesions and repair of a ureteral injury with a left ureterocystostomy. RECOMMENDATIONS: We will continue IV antibiotic therapy, awaiting sensitivities as these should be out tomorrow. Continue with nutritional support and we will continue left ureteral stent. Angelo catheter in place at this time. <ELECTRONICALLY SIGNED> By: Vidal Henley MD 05/02/20 [id number] Vidal Henley MD /nt
--- NOTE | 2020-05-02 15:44 | NUR ---
PT ON IV ABX. SURGERY AND ID ASSESSED AND PT CONTINUES ON IV ABX. CARE TEAM INDICATING THAT PT IS PROGRESSING TOWARD GOAL OF DC HOME. TI IS ANTIPATED THAT PT WILL LIKELY BE MEDCIALLY STABLE TO DC HOME ONCE MEDICALLY STABLE. CM FOLLOWING REGARDING DC PLANNING.
[2020-05-02 16:16] VITALS: BP 132/87
--- NOTE | 2020-05-02 16:45 | NUR ---
ASSUMED CARE OF PATIENT AT SHIFT CHANGE. ASSESSMENT CHARTED. MEDICATIONS HELD PER PATIENT REQUEST. VSS. PATIENT IS A&OX4 AND MAKES NEEDS KNOWN. PATIENT AMBULATES W STANDBY ASSISTANCE AND CALLS NEEDED. PATIENT ABD INCISION INTACT W STERI STRIPS AND ABD BANDAGE IN PLACE; PATIENT REPORTED A SMALL AMOUNT OF BLOOD DRAINING FROM WOUND AFTER PROVIDER "PUSHED ON BELLY"; NO PAIN VOICED. SITE WAS CLEANED AND REINFORCED. LAZARO INTACT AND DRAINING YELLOW URINE. PATIENT DENIES BLADDER DISCOMFORT OR PAIN THIS SHIFT. C/O PAIN ON ABD SITE BUT REQUESTED NO PAIN MEDS AT THIS TIME. STOOL SAMPLE SENT TO LAB FOR OCCULT BLOOD AND WAS NEGATIVE. PATIENT VOICING NO NEEDS AT THIS TIME. WILL CONTINUE TO MONITOR PATIENT
[2020-05-02 21:11] VITALS: BP 132/85
--- NOTE | 2020-05-03 03:52 | NUR ---
Assumed pt care at 1900. A/OX4,VSS.Up with SBA to toilet w/o any problems. Angelo patent to DD with light yellow urine,no hematuria noted. C/o back pain on assessment,medicated with Morphine with relief reported. SR on telemetry. Abd midline incision dsg intact. Fall precautions in place,calls approp for help. Resting w/o any distress noted,will continue to monitor pt.
[2020-05-03 08:20] VITALS: BP 129/88
--- NOTE | 2020-05-03 11:53 | NUR ---
CARE TEAM INDICATING THAT PT WILL LIKELY BE MEDICALLY STABLE TO DC HOME TO SELF CARE THIS DAY ON ORAL ABX WITH OP UROLOGY FOLLOW UP. NO OTHER CM INTERENTION INDICATED. CASE CLOSED.
[2020-05-03] MEDS ORDERED: PROBIOTIC1 EAC1 PO (12:25)
[2020-05-03] MEDS ORDERED: CEFDINIR300 MG PO (12:27)
[2020-05-03 15:37] VITALS: BP 129/88
== END 2020-05-03 16:50 | disposition home or self-care (01) | DRG 872 ==
LOC: ER 20:02 → 2N 04-29 00:47 → EROBS 04-29 00:47 → 2N 04-29 02:52 → 4W 04-30 18:08
PROVIDERS: Emergency Medicine; Internal Medicine; Nurse Practitioner Acute Care; ADMIT Hospitalist; ATTEND Hospitalist
DX: A41.9 Sepsis, unspecified organism (principal); N12 Tubulo-interstitial nephritis, not specified as acute or chronic; N17.9 Acute kidney failure, unspecified; S37.39XA Other injury of urethra, initial encounter; G43.909 Migraine, unspecified, not intractable, without status migrainosus; R31.0 Gross hematuria; R73.9 Hyperglycemia, unspecified; M54.5 Low back pain; I95.9 Hypotension, unspecified; D64.9 Anemia, unspecified; X58.XXXA Exposure to other specified factors, initial encounter; F32.9 Major depressive disorder, single episode, unspecified; Z79.899 Other long term (current) drug therapy; Z88.1 Allergy status to other antibiotic agents; Z90.711 Acquired absence of uterus with remaining cervical stump; Z98.84 Bariatric surgery status; Z88.2 Allergy status to sulfonamides; Z88.8 Allergy status to other drugs, medicaments and biological substances; Z80.52 Family history of malignant neoplasm of bladder; Z80.41 Family history of malignant neoplasm of ovary; Y93.89 Activity, other specified; Y92.89 Other specified places as the place of occurrence of the external cause; Y99.8 Other external cause status
CPT/HCPCS: 10045; 10047; 10081

== ENCOUNTER → 2020-05-06 | Outpatient (CLI) | payer OTHER ==
[~2020-05-06] MED LIST changes: +CEFDINIR300 MG PO; +PROBIOTIC1 EAC1 PO
== END ==
LOC: CAT 10:12
PROVIDERS: ATTEND Urology
DX: S37.10XA Unspecified injury of ureter, initial encounter (principal); X58.XXXA Exposure to other specified factors, initial encounter; Y93.89 Activity, other specified; Y92.89 Other specified places as the place of occurrence of the external cause; Y99.8 Other external cause status

== ENCOUNTER → 2020-05-18 | Outpatient (CLI) | payer OTHER ==
[2020-05-18 11:52] LABS: ABSOLUTE NEUTROPHILS 1.3 thou/uL (1.4-8.2); BASOPHILS 2.2 % (0.0-2.0); EOSINOPHILS 12.1 % (0.0-3.0); HEMATOCRIT 36.9 % (37.0-47.0); HEMOGLOBIN 12.2 gm/dL (12.0-15.0); LYMPHOCYTES 49.9 % (24.0-44.0); MCH 25.7 pg (26.0-34.0); MCHC 32.9 g/dL (28.0-37.0); MONOCYTES 6.8 % (1.0-8.0); PLATELET COUNT 371 thou/uL (150-400); RBC 4.74 mil/uL (4.20-5.00); RDW 14.9 % (10.5-14.5); WBC 4.6 thou/uL (4.0-11.0)
[2020-05-18 11:59] LABS: ALBUMIN 3.8 g/dL (3.4-5.0); CALCIUM 9.2 mg/dL (8.5-10.1); POTASSIUM 4.2 mmol/L (3.5-5.1); TOTAL BILIRUBIN 0.4 mg/dL (0.2-1.0); TOTAL PROTEIN 7.7 g/dL (6.4-8.2)
== END ==
LOC: LAB 11:13
PROVIDERS: ATTEND Specialist
DX: A49.8 Other bacterial infections of unspecified site (principal)

== ENCOUNTER → 2020-07-06 | Outpatient (CLI) | payer OTHER | LOC: ULTRA 08:03 | PROVIDERS: ATTEND Urology | DX: N13.39 Other hydronephrosis (principal); N28.9 Disorder of kidney and ureter, unspecified ==

== ENCOUNTER → 2020-10-18 | Outpatient (CLI) | payer OTHER | LOC: ULTRA 07:38 | PROVIDERS: ATTEND Urology | DX: N13.39 Other hydronephrosis (principal) ==